=== PATIENT | female | born 1980 | race Caucasian/White ===

== ENCOUNTER 2017-07-07 15:18 | Emergency (ER) | payer OTHER ==
[~2017-07-07] VITALS: Ht 157.5 cm; Wt 57.0 kg
[2017-07-07 15:18] VITALS: BP 115/88; PULSE 134; RESP 18; TEMP 98.4; O2SAT 99
[2017-07-07 15:36] VITALS: RESP 18; O2SAT 98
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
[2017-07-07 15:55] VITALS: BP 108/61; PULSE 116; RESP 17; O2SAT 98
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
[2017-07-07 16:52] LABS: AUTOMATED NEUTROPHIL # 2.5 TH/MM3 (1.8-7.7); BASOPHIL % 0.7 % (0.0-2.0); EOSINOPHIL % 0.2 % (0.0-4.0); HEMATOCRIT 39.5 % (35.0-46.0); HEMO FLAGS DIFF FINAL; LYMPH % 30.2 % (9.0-44.0); LYMPHOCYTE # 1.2 TH/MM3 (1.0-4.8); MEAN CELL VOLUME 100.4 FL (80.0-100.0); MEAN CORPUSCULAR HGB CONC 33.8 % (32.0-36.0); MONO % 5.7 % (0.0-8.0); NEUT % 63.2 % (16.0-70.0); PLATELET COUNT 245 TH/MM3 (150-450); RED BLOOD COUNT 3.93 MIL/MM3 (4.00-5.30); RED CELL DISTRIBUTION WIDTH 12.3 % (11.6-17.2); WHITE BLOOD COUNT 3.9 TH/MM3 (4.0-11.0)
[2017-07-07 16:54] LABS: BLOOD, URINE TRACE (NEG); GLUCOSE,URINE NEG (NEG); KETONE, URINE NEG (NEG); NITRITE,URINE NEG (NEG); SQUAMOUS EPITHELIAL CELL URINE <1 /hpf (0-5); URINE COLOR LIGHT-YELLOW (YELLW/STRAW)
[2017-07-07 17:01] LABS: COMMENT (UR) CULT NOT INDICATED; CULTURE IF INDICATED CULT NOT INDICATED
[2017-07-07 17:10] VITALS: BP 115/60; PULSE 106; RESP 18; TEMP 98.2; O2SAT 99
[2017-07-07 17:16] LABS: APTT (PATIENT) 29.9 SEC (24.3-30.1); INTERNATIONAL NORMALIZED RATIO 1.1 RATIO
[2017-07-07 17:20] LABS: ALT (GPT) 20 U/L (10-53); ANION GAP 7 MEQ/L (5-15); AST (GOT) 12 U/L (15-37); BICARBONATE 28.3 MEQ/L (21.0-32.0); BLOOD UREA NITROGEN 8 MG/DL (7-18); CHLORIDE 112 MEQ/L (98-107); GLOMERULAR FILTRATION RATE 95 ML/MIN (>89); POTASSIUM 3.8 MEQ/L (3.5-5.1); SODIUM (NA) 147 MEQ/L (136-145)
[2017-07-07 17:21] LABS: ALCOHOL 277 MG/DL (0-5)
[2017-07-07 17:24] LABS: ALKALINE PHOSPHATASE 52 U/L (45-117); TOTAL BILIRUBIN ADULT 0.3 MG/DL (0.2-1.0)
[2017-07-07 17:31] LABS: ACETAMINOPHEN LESS THAN 2.0 MCG/ML (10.0-30.0); CREATINE KINASE 74 U/L (26-192)
[2017-07-07 20:56] VITALS: BP 107/71; PULSE 99; RESP 16; O2SAT 100
[2017-07-07 22:28] VITALS: BP 128/80; PULSE 119; RESP 18; O2SAT 95
[2017-07-08 01:53] VITALS: BP 91/52; PULSE 96; RESP 17; O2SAT 98
[2017-07-08 06:31] VITALS: BP 107/63; PULSE 94; RESP 17; O2SAT 98
--- NOTE | 2017-07-08 10:41 | EKG ---
Date Performed: 07/07/2017 Time Performed: 15:22:56 PTAGE: 37 years EKG: SINUS TACHYCARDIA WITH SHORT VT INTERVAL NONSPECIFIC ST & T-WAVE ABNORMALITY ABNORMAL RHYTH M ECG NO PREVIOUS TRACING DOCTOR: Eliazar Ward Interpretating Date/Time 07/08/2017 10:40:59
[2017-07-08 11:36] VITALS: BP_SYST 127; BP_DIAS 16; BP_DIAS 79; PULSE 101; RESP 16; TEMP 98.8; O2SAT 99
[2017-07-08 14:30] VITALS: BP 106/70; PULSE 109; RESP 18
== END 2017-07-08 16:36 ==
LOC: NEPE 15:18 → NEPJ 07-08 16:36
DX: F10.920 Alcohol use, unspecified with intoxication, uncomplicated (principal); R94.31 Abnormal electrocardiogram [ECG] [EKG]
CPT/HCPCS: 70450; 71010; 80053; 80307; 81001; 82550; 84484; 84703; 85025; 85610; 85730; 93005; 99285